=== PATIENT | female | born 1970 ===

== ENCOUNTER 2018-01-10 10:26 | Emergency (ER) | payer OTHER ==
[2018-01-10] MEDS ORDERED: LIDOCAINE 2% VISCOUS 15 ML UDCUP PO ONE (10:58)
[2018-01-10] MEDS ORDERED: MAG HYDROX/AL HYDROX/SIMETH 30 ML UDCUP PO ONE (10:58)
--- NOTE | 2018-01-10 11:03 | EDPHY ---
H & P Stated Complaint: Chronic abd pain for 2 years .Last saw PCP 07/31/2017 Time Seen by Provider: 01/10/18 10:32 HPI/ROS: Chief Complaint: Abdominal pain HPI: 47-year-old woman has been experiencing epigastric abdominal pain off and on for the last couple of years. She has been seen by her primary care doctor who referred to get to Gastroenterology. She has not followed up because she was either not feeling well could not get a ride. She has been having epigastric pain for the last 3 months. She has been taking omeprazole and Tessalon which were prescribed by her doctor. These are not providing any significant relief. No nausea or vomiting. No diarrhea or constipation. No dark black tarry stools. No fevers or chills. No cough. She has the pain every day, worse at night. She has a pain every day for the last 2 months but there is no new changes today other than she is just over to get some relief. ROS: 10 point Review of Systems is negative except as noted in the HPI. PMH: Abdominal pain Social History: No smoking, no alcohol, no recreational drug use Family History: non-contributory Physical Exam: Gen: Awake, Alert, No Distress HEENT: Nose: no rhinorrhea Eyes: PERRLA, EOMI Mouth: Moist mucosa Neck: Supple, no JVD Chest: nontender, lungs clear to auscultation Heart: S1, S2 normal, no murmur Abd: Soft, moderate epigastric and left upper quadrant tenderness, no Chou sign, no guarding Back: no CVA tenderness, no midline tenderness Ext: no edema, non-tender Skin: no rash Neuro: CN II-XII intact, Sensation grossly intact, Strength 5/5 in bilateral upper and lower extremities - Personal History LMP (Females 10-55): Over 28 Days Ago Current Tetanus/Diphtheria Vaccine: Unsure Current Tetanus Diphtheria and Acellular Pertussis (TDAP): Unsure - Medical/Surgical History Hx Asthma: No Hx Chronic Respiratory Disease: No Hx Diabetes: No Hx Cardiac Disease: No Hx Renal Disease: No Hx Cirrhosis: No Hx Alcoholism: No Hx HIV/AIDS: No Hx Splenectomy or Spleen Trauma: No Other PMH: Chronic abd pain. chronic constipation. Tonsilectomy - Social History Smoking Status: Never smoked Constitutional: Initial Vital Signs Temperature (C) 36.5 C 01/10/18 10:34 Heart Rate 75 01/10/18 10:34 Respiratory Rate 16 01/10/18 10:34 Blood Pressure 167/103 H 01/10/18 10:34 O2 Sat (%) 97 01/10/18 10:34 O2 Delivery Mode Room Air Allergies/Adverse Reactions: prednisone Allergy (Verified 01/10/18 10:42) Home Medications: Medication Instructions Recorded Benzonatate 01/10/18 Omeprazole 01/10/18 Medical Decision Making ED Course/Re-evaluation: 47-year-old woman presenting with chronic epigastric pain which has been going on for months. She has no new symptoms today. Symptoms consistent with peptic ulcer disease. She is not having any melena. She otherwise has a benign exam and normal vital signs. She has been given a GI cocktail with some relief here. I have encouraged her to follow up with Gastroenterology for endoscopy. Departure - Departure Disposition: Home, Routine, Self-Care Clinical Impression: Abdominal pain Condition: Good Instructions: Abdominal Pain (ED) Additional Instructions: Continue taking the medications prescribed by your doctor. Follow up with a administrative asst at the next available appointment for further evaluation. Referrals: Mark Bernal MD [Medical Doctor] - As per Instructions
[2018-01-10 11:49] VITALS: BP 153/88
== END 2018-01-10 11:30 | disposition home or self-care (01) ==
LOC: CED 10:26
DX: R10.13 Epigastric pain (principal)